=== PATIENT | female | born 1960 | race Caucasian/White ===

== ENCOUNTER → 2016-08-10 | Outpatient (CLI) | payer OTHER ==
[~2016-08-10] MED LIST: CALC500C70 PO; CHOL20007 PO; FLUT0.15 NAE; LISI-461 PO; OMEG10007 PO; OXYC7.5T65 PO; POTATAB2 PO; PROB1CHW9 PO; VSNOPS
== END | disposition home or self-care (01) ==
LOC: C.LABSPEC 15:31
PROVIDERS: ATTEND Urology
DX: R31.0 Gross hematuria (principal)

== ENCOUNTER → 2016-08-17 | Day surgery (SDC) | payer OTHER ==
[2016-08-13 11:42] VITALS: Ht 158.8 cm; Wt 117.3 kg
--- NOTE | 2016-08-13 12:28 | PAT Medication Instructions ---
Service Date Aug 13, 2016. Current Home Medication List Calcium/Vitamin D (Os-Bishop 500 Plus D), Unknown Dose PO DAILY Cholecalciferol (Vitamin D3), 1 TAB PO 3 PM Fish Oil (Heaters-3), 1,000 MG PO QAM Fluticasone Propionate (Nasal) (Flonase Allergy Relief), 1 SPRAY UDAY QAM Lisinopril (Zestril), 10 MG PO QAM Probiotic Product (Digestive Advantage Probi), 1 CAP PO QAM Tetrahydrozoline HCl (Visine), Unknown Dose Medication Instructions For Your Scheduled Surgery - Hold the following medications starting 08/14/16: Fish Oil (Heaters-3), 1,000 MG PO QAM - Hold the following medications the morning of surgery: Probiotic Product (Digestive Advantage Probi), 1 CAP PO QAM Lisinopril (Zestril), 10 MG PO QAM Calcium/Vitamin D (Os-Bishop 500 Plus D), Unknown Dose PO DAILY - Take the following medications the morning of surgery with a sip of water: Fluticasone Propionate (Nasal) (Flonase Allergy Relief), 1 SPRAY UDAY QAM Tetrahydrozoline HCl (Visine), Unknown Dose - Take the following medications as scheduled the night before surgery: Cholecalciferol (Vitamin D3), 1 TAB PO 3 PM Tetrahydrozoline HCl (Visine), Unknown Dose If you have any questions please call us at [phone] (Joelle Robertson PA-C) or [phone] or [phone]
--- NOTE | 2016-08-13 13:08 | DIAGNOSTIC IMAGING REPORT ---
CHEST 2 VIEWS ROUTINE CLINICAL HISTORY: Preoperative chest COMPARISON STUDY: No previous studies for comparison. FINDINGS: The cardiac and mediastinal contours are normal. There is no evidence of focal pulmonary consolidation. There is no evidence of failure. No pleural effusions are visualized.[ IMPRESSION: No active disease in the chest. Electronically signed by: Holden Jean-Baptiste M.D. 08/13/2016 1:06 PM Dictated Date/Time: 08/13/2016 1:05 PM
[2016-08-13 13:25] LABS: HEMATOCRIT 41.7 % (37-47); MEAN CELL VOLUME 86.3 fL (80-100); MEAN CORPUSCULAR HEMOGLOBIN 30.2 pg (25-34); MEAN PLATELET VOLUME 10.8 fL (7.4-10.4); PLATELET COUNT 218 K/uL (130-400); RED BLOOD COUNT 4.83 M/uL (4.2-5.4); WHITE BLOOD COUNT 9.67 K/uL (4.8-10.8)
[2016-08-13 13:28] LABS: URINE APPEARANCE CLEAR (CLEAR); URINE BILIRUBIN NEG (NEG); URINE COLOR YELLOW; URINE NITRITE NEG (NEG); URINE PH 6.5 (4.5-7.5); URINE SPECIFIC GRAVITY 1.013 (1.000-1.030); UROBILINOGEN NEG (NEG)
[2016-08-13 13:45] LABS: BUN/CREATININE RATIO 13.8 (10-20); CREATININE 0.61 mg/dl (0.60-1.20); POTASSIUM 3.8 mmol/L (3.5-5.1)
[2016-08-13 13:46] LABS: CALCIUM 9.4 mg/dl (8.5-10.1)
[2016-08-13 14:03] LABS: MANUAL MICROSCOPIC REQUIRED? NO; REVIEW REQ? NO
[~2016-08-17] VITALS: Ht 158.8 cm; Wt 117.3 kg
[~2016-08-17] MED LIST changes: +ATROPINE SULFATE 0.1 MG/ML 5ML SYR IV PRN; +CIPROFLOXACIN 400MG / D5W IV SCH; +DEXAMETHASONE SOD INJ 4 MG/ML VIAL IV PRN; +DEXAMETHASONE SOD INJ 4 MG/ML VIAL ONE; +EpHEDrine SULFATE INJ 50 MG/ML AMP IV PRN; +FENTANYL CITRATE INJ 50 MCG/1 ML 2 ML VIAL IV PRN; +FENTANYL CITRATE INJ 50 MCG/1 ML 2 ML VIAL ONE; +KETOROLAC TROMETHAMINE 30 MG/ML VIAL IV. PRN; +LABETALOL HCL IV 5 MG/ML 20ML IV PRN; +LACTATED RINGER'S 1000ML 1,000 ML IV SCH; +LIDOCAINE HCL 2% 2 ML VIAL (20MG/ML) ONE; +METOCLOPRAMIDE HCL INJ 5 MG/ML 2 ML VIAL IV PRN; +MIDAZOLAM HCL 1 MG/ML 2ML VIAL ONE; +MoRPHine SULFATE 10 MG/ML CARP/VIAL IV PRN; +ONDANSETRON INJ 2 MG/ML 2 ML VIAL IV PRN; +ONDANSETRON INJ 2 MG/ML 2 ML VIAL ONE; +OXYCODONE/ACETAMINOPHEN 5-325 TAB PO PRN; +PHENYLEPHRINE 100MCG/ML 5ML SYR IV PRN; +PROPOFOL IV EMULSION 10 MG/ML 20 ML VIAL IV ONE
--- NOTE | 2016-08-17 07:35 | History & Physical Bridge Note ---
H&P Re-Evaluation Bridge Note: I have examined the patient, reviewed the History & Physical and in the interval since the performance of the History & Physical I have noted the following changes of clinical significance: No changes noted
--- NOTE | 2016-08-17 07:59 | DIAGNOSTIC IMAGING REPORT ---
KUB HISTORY: N20.0 [id number] COMPARISON: Abdomen and pelvis CT 08/03/2016. FINDINGS: The bowel gas pattern is unremarkable. There are no dilated loops of small bowel to suggest an obstruction. There is a stable 4 mm stone within the left kidney. No right renal artery ureteral calculi. Calcifications in the deep pelvis likely represent phleboliths. No pneumoperitoneum or pneumatosis. IMPRESSION: Stable left-sided nephrolithiasis. Electronically signed by: Sherif Hidalgo M.D. 08/17/2016 7:57 AM Dictated Date/Time: 08/17/2016 7:56 AM
--- NOTE | 2016-08-17 09:11 | Discharge Instructions ---
Discharge Instructions Date of Service Aug 17, 2016. Admission Reason for Admission: Stones Discharge Discharge Diagnosis / Problem: L renal stone s/p ESWL Discharge Goals Goal(s): Decrease discomfort, Improve disease control, Therapeutic intervention Activity Recommendations Activity Limitations: per Instructions/Follow-up section Lifting Limitations: no more than 25 pounds, gradually increase as tolerated ( x 3 days) Exercise/Sports Limitations: rest today, gradually increase as tolerated May Resume Sexual Activity: when tolerated Shower/Bathe: no limitations Driving or Machine Use: resume 1 day after discharge . Instructions / Follow-Up Instructions / Follow-Up Strain urine as instructed KUB Xray before office visit as scheduled Discharge Diet Recommended Diet: Regular Diet (good fluid intake) Procedures Procedures Performed: L renal ESWL Pending Studies Studies pending at discharge: no Medical Emergencies . Who to Call and When: Medical Emergencies: If at any time you feel your situation is an emergency, please call 911 immediately. . Non-Emergent Contact Non-Emergency issues call your: Urologist Call Non-Emergent contact if: you have a fever, temperature is above 101, your pain is not controlled, your pain is worsening, your pain is unusual for you, your pain is concerning you, you have any medication questions . . "Provider Documentation" section prepared by Awais Kirby. . VTE Core Measure Inpt VTE Proph given/why not?: SCD's [place] Drug Monitoring Program Search Results: patient reviewed within database, no issues identified
--- NOTE | 2016-08-17 09:40 | [facility] Post Operative Brief Note ---
Immediate Operative Summary Operative Date Aug 17, 2016. Pre-Operative Diagnosis Left Renal Stone Post-Operative Diagnosis Same Procedure(s) Performed L renal ESWL Surgeon Dr. Kirby Senior Sql Developer Surgeon(s) None Estimated Blood Loss 0 mL Findings Good stone fragmentation on fluoro Specimens None Drains NA Anesthesia GALMA Complication(s) None Disposition Recovery Room / PACU
--- NOTE | 2016-08-17 10:09 | OPERATIVE REPORT ---
DATE OF OPERATION: 08/17/2016 PREOPERATIVE DIAGNOSIS: Left renal stone. POSTOPERATIVE DIAGNOSIS: Same. PROCEDURE: Left renal extracorporeal shockwave lithotripsy. SURGEON: Dr. Awais Kirby. RECREATION TEACHER: None. ANESTHESIA: General anesthesia with laryngeal mask. COMPLICATIONS: None. FINDINGS: Good stone fragmentation on fluoroscopy. DETAILS OF PROCEDURE: The patient was brought to the litho suite. He was correctly identified and the stone was visualized on his most recent x-rays. After the correct time out was performed the patient was positioned over the therapy head. An adequate level of anesthesia was administered. The extracorporeal shockwave lithotripsy treatment was then commenced. Please see the [facility] sheet for complete treatment summary. After completion of the procedure the patient was taken to the recovery room in stable condition. I attest to the content of the Intraoperative Record and any orders documented therein. Any exceptio ns are noted below.
[2016-08-17 10:23] VITALS: TEMP 36.7
--- NOTE | 2016-08-17 10:31 | Anesthesia Progress Nt - [facility] ---
Anesthesia Post Op Note Date & Time Aug 17, 2016 at 10:31 Vital Signs Pain Intensity: 0 Vital Signs Past 12 Hours Date Time Temp Pulse Resp B/P Pulse Ox O2 Delivery O2 Flow Rate FiO2 08/17/16 10:23 36.7 68 18 112/75 95 Room Air 08/17/16 10:10 128/82 08/17/16 10:07 36.8 72 20 128/82 96 Room Air 08/17/16 10:07 69 24 94 08/17/16 10:07 68 24 08/17/16 10:04 129/80 08/17/16 10:02 69 17 08/17/16 10:02 69 17 96 08/17/16 09:59 124/84 08/17/16 09:57 69 15 98 08/17/16 09:57 69 15 08/17/16 09:54 124/76 08/17/16 09:52 65 17 100 08/17/16 09:52 66 17 08/17/16 09:49 125/87 08/17/16 09:47 63 17 99 08/17/16 09:47 63 17 08/17/16 09:44 122/87 08/17/16 09:42 73 11 08/17/16 09:42 36.4 68 16 129/85 99 Diffusion Mask 6 08/17/16 09:42 76 11 129/85 99 08/17/16 07:05 37 75 16 123/85 96 Room Air Notes Mental Status: alert / awake / arousable, participated in evaluation Pt Amnestic to Procedure: Yes Nausea / Vomiting: adequately controlled Pain: adequately controlled Airway Patency, RR, SpO2: stable & adequate BP & HR: stable & adequate Hydration State: stable & adequate Anesthetic Complications: no major complications apparent
[2016-08-17 10:46] VITALS: BP 118/78; PULSE 67; O2SAT 97
== END | disposition home or self-care (01) ==
LOC: X.SURG 06:28
PROVIDERS: ATTEND Urology
DX: N20.0 Calculus of kidney (principal); R31.0 Gross hematuria; I10 Essential (primary) hypertension; Z80.1 Family history of malignant neoplasm of trachea, bronchus and lung; Z83.3 Family history of diabetes mellitus; Z80.6 Family history of leukemia; Z78.9 Other specified health status; Z79.899 Other long term (current) drug therapy

== ENCOUNTER → 2016-08-29 | Outpatient (CLI) | payer OTHER ==
[~2016-08-29] MED LIST changes: -ATROPINE SULFATE 0.1 MG/ML 5ML SYR IV PRN; -CIPROFLOXACIN 400MG / D5W IV SCH; -DEXAMETHASONE SOD INJ 4 MG/ML VIAL IV PRN; -DEXAMETHASONE SOD INJ 4 MG/ML VIAL ONE; -EpHEDrine SULFATE INJ 50 MG/ML AMP IV PRN; -FENTANYL CITRATE INJ 50 MCG/1 ML 2 ML VIAL IV PRN; -FENTANYL CITRATE INJ 50 MCG/1 ML 2 ML VIAL ONE; -KETOROLAC TROMETHAMINE 30 MG/ML VIAL IV. PRN; -LABETALOL HCL IV 5 MG/ML 20ML IV PRN; -LACTATED RINGER'S 1000ML 1,000 ML IV SCH; -LIDOCAINE HCL 2% 2 ML VIAL (20MG/ML) ONE; -METOCLOPRAMIDE HCL INJ 5 MG/ML 2 ML VIAL IV PRN; -MIDAZOLAM HCL 1 MG/ML 2ML VIAL ONE; -MoRPHine SULFATE 10 MG/ML CARP/VIAL IV PRN; -ONDANSETRON INJ 2 MG/ML 2 ML VIAL IV PRN; -ONDANSETRON INJ 2 MG/ML 2 ML VIAL ONE; -OXYCODONE/ACETAMINOPHEN 5-325 TAB PO PRN; -PHENYLEPHRINE 100MCG/ML 5ML SYR IV PRN; -PROPOFOL IV EMULSION 10 MG/ML 20 ML VIAL IV ONE
--- NOTE | 2016-08-29 15:29 | DIAGNOSTIC IMAGING REPORT ---
KUB CLINICAL HISTORY: NEPHROLITHIASIS COMPARISON STUDY: 08/17/2016 FINDINGS: There is no pathologic bowel dilatation. The renal shadows are partially obscured overlying bowel gas and fecal material. There is a stable 4 mm upper pole left renal calculus. Multiple pelvic basin calcifications remain similar. IMPRESSION: Stable 4 mm left renal calculus Electronically signed by: Holden Jean-Baptiste M.D. 08/29/2016 3:28 PM Dictated Date/Time: 08/29/2016 3:26 PM
== END | disposition home or self-care (01) ==
LOC: C.RAD 14:43
PROVIDERS: ATTEND Urology
DX: N20.0 Calculus of kidney (principal)

== ENCOUNTER → 2016-08-29 | Outpatient (CLI) | payer OTHER | END | disposition home or self-care (01) | LOC: C.LABSPEC 10:53 | PROVIDERS: ATTEND Urology | DX: N20.0 Calculus of kidney (principal) ==

== ENCOUNTER → 2017-01-01 | Outpatient (CLI) | payer OTHER ==
--- NOTE | 2017-01-01 14:59 | DIAGNOSTIC IMAGING REPORT ---
KUB HISTORY: N20.0 Nephrolithiasis COMPARISON: KUB 08/29/2016. Abdomen and pelvis CT 08/03/2016. FINDINGS: The bowel gas pattern is unremarkable. There are no dilated loops of small bowel to suggest an obstruction. Multiple calcifications within the deep pelvis are not significantly changed and therefore favor phleboliths. No definite ureteral calculi. Oval-shaped densities at the level of the rectum likely represent ingested medication. The renal shadows are partially obscured by overlying bowel. No definite renal calculi. No pneumoperitoneum or pneumatosis. IMPRESSION: The left renal stone seen on the prior studies is no longer identified. This could be obscured by the overlapping bowel or may have passed in the interval. No ureteral calculi. Electronically signed by: Sherif Hidalgo M.D. 01/01/2017 2:57 PM Dictated Date/Time: 01/01/2017 2:54 PM
== END | disposition home or self-care (01) ==
LOC: C.RAD 14:07
PROVIDERS: ATTEND Urology
DX: N20.0 Calculus of kidney (principal)

== ENCOUNTER → 2017-07-01 | Outpatient (CLI) | payer OTHER ==
[~2017-07-01] MED LIST changes: +CALC600C9 PO; -OXYC7.5T65 PO; +PROB1CAP PO
== END | disposition home or self-care (01) ==
LOC: C.LAB1850 14:59
PROVIDERS: ATTEND Obstetrics & Gynecology
DX: N83.209 Unspecified ovarian cyst, unspecified side (principal)

== ENCOUNTER → 2017-07-17 | Outpatient (CLI) | payer OTHER ==
[~2017-07-17] MED LIST changes: -CALC500C70 PO; -CHOL20007 PO; -POTATAB2 PO; -PROB1CHW9 PO
--- NOTE | 2017-07-17 11:58 | DIAGNOSTIC IMAGING REPORT ---
CT SCAN OF THE ABDOMEN AND PELVIS WITHOUT IV CONTRAST CLINICAL HISTORY: Nephrolithiasis. COMPARISON STUDY: KUB dated 01/01/2017. Abdominal CT dated 08/03/2016. TECHNIQUE: CT scan of the abdomen and pelvis is performed from the lung bases to the proximal femora. Images are reviewed in the axial, sagittal, and coronal planes. IV contrast was not administered for this examination. A dose lowering technique was utilized adhering to the principles of ALARA. CT DOSE: 1004.90 mGycm FINDINGS: Lung bases: The heart is normal in size and without pericardial effusion. Small fat-containing Bochdalek hernias are present at both lung bases. Linear atelectasis versus scarring is seen in the right middle lobe. The lung bases are otherwise clear. Liver: The unenhanced liver is enlarged, measuring 19.4 cm in length. The liver demonstrates diminished attenuation consistent with hepatic steatosis. There is no intrahepatic biliary ductal dilatation. Gallbladder: Unremarkable. Spleen: The spleen is enlarged, measuring 14.9 cm in length. Pancreas: The unenhanced pancreas is moderately atrophic and grossly unremarkable. Adrenal glands: A 2.8 cm right adrenal nodule meets CT criteria for a fat-containing adenoma. This is unchanged from previous. The left adrenal gland is normal in appearance. Kidneys: The unenhanced kidneys demonstrate cortical atrophy and are without hydronephrosis. There is a small right-sided extrarenal pelvis. There is a 4 mm nonobstructing calculus in the lower pole of the left kidney. No calculi are identified in the right kidney. There is no evidence of contour deforming renal mass lesion. Abdominal vasculature: The abdominal aorta is normal in course and caliber. Bowel: There is mild sigmoid diverticulosis without CT evidence of acute diverticulitis. No bowel obstruction is seen. The appendix is well-visualized and normal. Peritoneum: There is no intraperitoneal free air or abdominal ascites. There is a fat-containing umbilical hernia. Lymphadenopathy: None. Pelvic viscera: The bladder is normal as visualized. The uterus is surgically absent. There is an 7.3 x 8.1 x 6.1 cm water attenuation lesion in the right adnexa, likely related to the right ovary. This demonstrates a thin rim of soft tissue. Skeletal structures: The skeletal structures are osteopenic. There is mild to moderate lumbosacral spondylosis. Sclerotic change is seen in the sacroiliac joints and pubic symphysis. No lytic or blastic lesions are seen. IMPRESSION: 1. There is a 4 mm nonobstructing left renal calculus. 2. No right renal calculi are identified. 3. Hepatomegaly and hepatic steatosis. 4. Splenomegaly. 5. There is an 8.1 cm water attenuation cystic lesion in the right adnexa with a thin rim of soft tissue. This is likely related to right ovary, and similar in appearance to the 08/03/2016 examination. Ovarian neoplasm is not excluded. Follow-up with gynecology is recommended. 6. Additional findings as above. Electronically signed by: Bala Arellano M.D. 07/17/2017 11:56 AM Dictated Date/Time: 07/17/2017 11:45 AM
== END | disposition home or self-care (01) ==
LOC: C.CTS 11:24
PROVIDERS: ATTEND Urology
DX: N20.0 Calculus of kidney (principal)

== ENCOUNTER → 2017-08-05 | Day surgery (SDC) | payer OTHER ==
[2017-07-04 15:51] VITALS: BMI 41.0
[2017-07-29 10:20] LABS: BASO % 0.4 %; BASO ABS # 0.03 K/uL (0-0.2); EOS % 3.1 %; EOS ABS # 0.22 K/uL (0-0.5); HEMATOCRIT 41.9 % (37-47); HEMOGLOBIN 14.6 g/dL (12.0-16.0); IG# 0.02 K/uL (0.00-0.02); LYMPH % 38.7 %; LYMPH ABS # 2.75 K/uL (1.2-3.4); MEAN CELL VOLUME 86.6 fL (80-100); MEAN CORPUSCULAR HEMOGLOBIN 30.2 pg (25-34); MEAN CORPUSCULAR HGB CONC 34.8 g/dl (32-36); MONO % 6.8 %; MONO ABS # 0.48 K/uL (0.11-0.59); NEUT % 50.7 %; NEUT ABS # 3.61 K/uL (1.4-6.5); PLATELET COUNT 217 K/uL (130-400); RED CELL DISTRIBUTION WIDTH CV 12.2 % (11.5-14.5); RED CELL DISTRIBUTION WIDTH SD 38.9 fL (36.4-46.3); WHITE BLOOD COUNT 7.11 K/uL (4.8-10.8)
[2017-07-29 10:47] LABS: CALCIUM 9.4 mg/dl (8.5-10.1); CREATININE 0.68 mg/dl (0.60-1.20); POTASSIUM 3.8 mmol/L (3.5-5.1)
[~2017-08-05] VITALS: Ht 158.8 cm; Wt 105.5 kg
[~2017-08-05] MED LIST changes: +ACETAMINOPHEN 1000 MG/100 ML IV IV ONE; +ATROPINE SULFATE 0.1 MG/ML 5ML SYR IV PRN; +BUPIVACAINE 0.5 % 5 MG/1 ML MPF 30ML VIAL ONE; +CEFAZOLIN 3000MG IV PUSH 22.5 ML IV SCH; +DEXAMETHASONE SOD INJ 4 MG/ML VIAL ONE; +EpHEDrine SULFATE INJ 50 MG/ML AMP IV PRN; +FENTANYL CITRATE INJ 50 MCG/1 ML 2 ML VIAL IV PRN; +FENTANYL CITRATE INJ 50 MCG/1 ML 2 ML VIAL ONE; +GLYCOPYRROLATE INJ 0.2 MG/ML VIAL ONE; +HYDROmorphone INJ 1 MG/ML SYR IV PRN; +IBUPROFEN 600 MG TAB PO PRN; +KETOROLAC TROMETHAMINE 30 MG/ML VIAL IV. PRN; +KETOROLAC TROMETHAMINE 30 MG/ML VIAL ONE; +LACTATED RINGER'S 1000ML 1,000 ML IV SCH; +LIDOCAINE HCL 2% 2 ML VIAL (20MG/ML) ONE; +MIDAZOLAM HCL 1 MG/ML 2ML VIAL ONE; +MTR600X PO; +NEOSTIGMINE METHYLSULFATE 5 MG/5 ML SYR ONE; +ONDANSETRON INJ 2 MG/ML 2 ML VIAL IV PRN; +ONDANSETRON INJ 2 MG/ML 2 ML VIAL ONE; +OXYC-57 PO; +OXYCODONE/ACETAMINOPHEN 5-325 TAB PO PRN; +PROMETHAZINE HCL INJ 25 MG in SODIUM CHLORIDE 0.9% 50ML 50 ML IV PRN; +PROMETHAZINE HCL INJ 6.25 MG in SODIUM CHLORIDE 0.9% 50ML 50 ML IV PRN; +PROPOFOL IV EMULSION 10 MG/ML 20 ML VIAL IV ONE; +ROCURONIUM BROMIDE 10 MG/ML 5 ML VIAL IV ONE; +SODIUM CHLORIDE 0.9% 1000ML 1,000 ML IV SCH; +TISSEEL FIBRIN SEALANT 4ML TOP ONE
[2017-08-05 08:23] VITALS: BP 130/87; PULSE 74; TEMP 36.8; O2SAT 93; Ht 158.8 cm; Wt 105.5 kg
--- NOTE | 2017-08-05 11:51 | [facility] Post Operative Brief Note ---
Immediate Operative Summary Operative Date Aug 05, 2017. Pre-Operative Diagnosis Right Ovarian Cyst Post-Operative Diagnosis Right Ovarian Cyst and adhesions Procedure(s) Performed Robotic assisted laparoscopic right salpingo-oopherectomy and cystoscopy Surgeon Dr. Hodges White Lead Filterer Surgeon(s) None Estimated Blood Loss 10ml Findings Consistent with Post-Op Diagnosis Specimens A. Right Tube and Ovary Drains None Anesthesia Type General Complication(s) none Disposition Accompanied Pt To Recover: no Disposition: Recovery Room / PACU
--- NOTE | 2017-08-05 11:52 | Discharge Instructions ---
Discharge Instructions Date of Service Aug 05, 2017. Admission Reason for Admission: Left Ovarian Cyst Discharge Discharge Diagnosis / Problem: ovarian cyst Discharge Goals Goal(s): Routine recovery after surgery Activity Recommendations Activity Limitations: per Instructions/Follow-up section . Instructions / Follow-Up Instructions / Follow-Up ACTIVITY RECOMMENDATIONS: * Rest the first 2-3 days. You should be back to your normal activity levels by day 3. * No heavy lifting for 2 weeks. * No intercourse, tampons or douching for 1-2 weeks. * You may shower the next day. * Do not drive anytime that you are taking narcotic pain medicines. RETURN TO SCHOOL/WORK: * May return to school or work after 2-3 days. DIET: Nausea may occur in the immediate post-operative period. If so, take clear liquids such as tea, bouillon, apple juice until all nausea has subsided, then resume usual diet. MEDICATIONS: Resume previous medications unless instructed otherwise by your surgeon. Ibuprofen 200mg 2-3 tablets every 4-6 hours as needed -- OR -- Aleve 2 tablets every 8-12 hours as needed for post-operative discomfort Medications are over the counter. Tylenol may be used if above medications are contraindicated or not preferred. Medication should be taken with food or milk. Do not take on an empty stomach. SPECIAL CARE INSTRUCTIONS: * Check temperature twice daily for one week. report any elevation over 101 degrees. * You may experience some vagina spotting and/or bleeding. This is normal for 1 -2 weeks and should not be heavier than a normal period. If it is unusual in amount, call your physician. * Post-operative discomfort may consist of a sore throat, a "bloated" feeling and pain in the shoulders. these are normal symptoms, which usually only last for 2-3 days. * Remove band-aids tomorrow and shower. There is no need to replace band-aids unless there is drainage or discomfort. FOLLOW UP VISIT: Call your doctor's office for a post-operative 2 week visit if not already scheduled. Current Hospital Diet Patient's current hospital diet: Discharge Diet Recommended Diet: Regular Diet Procedures Procedures Performed: Robotic assisted laparoscopic right salpingo-oopherectomy and cystoscopy Pending Studies Studies pending at discharge: no Medical Emergencies . Who to Call and When: Medical Emergencies: If at any time you feel your situation is an emergency, please call 911 immediately. . Non-Emergent Contact Non-Emergency issues call your: Dancing Instructor . . "Provider Documentation" section prepared by Sohail Hodges. .
--- NOTE | 2017-08-05 13:13 | Anesthesiology Progress Note ---
Anesthesia Post Op Note Date & Time Aug 05, 2017 at 13:13 Vital Signs Pain Intensity: 0 Vital Signs Past 12 Hours Date Time Temp Pulse Resp B/P (MAP) Pulse Ox O2 Delivery O2 Flow Rate FiO2 08/05/17 13:10 54 12 107/73 97 Room Air 08/05/17 13:00 56 14 97/68 99 Room Air 08/05/17 12:50 59 16 89/55 95 Room Air 08/05/17 12:40 36.1 59 16 83/57 96 Room Air 08/05/17 12:30 59 16 95/54 96 Room Air 08/05/17 12:20 59 16 94/59 95 Oxymask 10 08/05/17 12:10 57 16 103/60 98 Oxymask 10 08/05/17 12:00 36.2 61 16 103/67 96 Oxymask 10 08/05/17 08:23 36.8 74 20 130/87 (101) 93 Room Air Notes Mental Status: alert / awake / arousable, participated in evaluation Pt Amnestic to Procedure: Yes Nausea / Vomiting: adequately controlled Pain: adequately controlled Airway Patency, RR, SpO2: stable & adequate BP & HR: stable & adequate Hydration State: stable & adequate Anesthetic Complications: no major complications apparent
[2017-08-05 13:20] VITALS: BP 113/68; PULSE 65; TEMP 36.6; O2SAT 92
--- NOTE | 2017-08-05 13:35 | OPERATIVE REPORT ---
DATE OF OPERATION: 08/05/2017 PREOPERATIVE DIAGNOSIS: Right ovarian cyst. POSTOPERATIVE DIAGNOSES: Right ovarian cyst and abdominal adhesions. PROCEDURE: Robotically assisted laparoscopic right salpingo-oophorectomy and cystoscopy. SURGEON: Sohail Hodges MD PRUNE WASHER: None. ESTIMATED BLOOD LOSS: 10 mL. FINDINGS: Consistent with postop diagnosis. SPECIMENS: Right tube and ovary. DRAINS: None. ANESTHETIC: General. COMPLICATIONS: None. DISPOSITION: Recovery room. DESCRIPTION OF PROCEDURE: Desi was given a general anesthetic, prepped and draped in dorsal lithotomy. She was given preoperative antibiotics and bowel prep had been performed the day before. Jay catheter placed in her bladder and a sponge stick placed in the vagina. Gloves changed and a supraumbilical incision made with scalpel using direct cutdown technique. We cut into the fascia, split the rectus muscles and entered the peritoneal cavity. Blunt-tipped Victor Hugo trocar then placed. Balloon inflated to allow port stabilization. CO2 gas used to insufflate the abdomen. FINDINGS: Upper abdomen normal. There were dense adhesions of the omentum and bowel on the left side of the abdomen all the way down to the pelvis. We started just below the umbilicus where the previous midline incision was. By passing these, I was able to visualize the cyst, which appeared benign in the pelvis. Because of the dense adhesions and the fact that they were causing an issue, we decided not to lyse these as risk, benefit analysis and certainly did not make sense. Two robotic ports were placed, one just left of the midline, but avoiding the adhesions and another in the right side and then a midline accessory port 8 mm placed. After Trendelenburg position robot was docked, arm #1 was monopolar sia, arm #2 was bipolar [place]. We did identify the ovary on the right side. There were adhesions to the bladder flap, the pelvic sidewall and flimsy adhesions to the epiploicae of the bowel. I was able to largely sharply dissect the adhesions away using minimal electrosurgery. Once the bowel was off the ovary, I was able to identify the right ureter. This was peristalsing as well away from the area of dissection. I was then able to coagulate the ovarian artery and vein on the right side, staying well away from the ureter and then cut this. We then skeletonized the right ovary and tube away from its right lateral wall attachments and as well, again to the bladder flap. There was some spillage, but minimal and it was clear fluid. Cyst appeared to be a simple cyst with a septation. Smooth walled, no excrescences. Then undocking the robot, we used a 5 mm scope and a 10 mm bag through the umbilical port. The specimen was then placed into the bag and brought up to the umbilical incision. It was drained at that point and then bag was removed. There is no leakage of further cyst fluid at this stage in the peritoneal cavity. After removing this, we generously irrigated and suctioned the area, hemostasis was excellent. We did apply 4 mL of Tisseel to the area. Hemostasis was excellent including passing a low carbon dioxide test. Ports removed, gas allowed to escape. Incisions injected with 0.5% Marcaine. Fascia closed with several [id number], 0 Vicryl stitches into the umbilical incision and then subcutaneous fat closed with 0 Vicryl, 4-0 subcuticular Monocryl closures and Dermabond applied. Jay catheter was removed. We did perform cystoscopy. There was no sign of bladder injury and both ureters on right and left side had good strong jets of urine from each side. Cystoscope removed and another Jay catheter was used to drain the bladder. Patient went to recovery room without a Jay. At the end of procedure, sponge and instrument counts were correct. I attest to the content of the Intraoperative Record and any orders documented therein. Any exception s are noted below.
[2017-08-05 13:50] VITALS: BP 102/66; PULSE 83; TEMP 36.6; O2SAT 96
== END ==
LOC: C.ACU 08:03
PROVIDERS: ATTEND Obstetrics & Gynecology
DX: D27.0 Benign neoplasm of right ovary (principal); K66.0 Peritoneal adhesions (postprocedural) (postinfection); I10 Essential (primary) hypertension; J45.909 Unspecified asthma, uncomplicated; Z88.2 Allergy status to sulfonamides; E66.9 Obesity, unspecified; Z80.1 Family history of malignant neoplasm of trachea, bronchus and lung; Z83.3 Family history of diabetes mellitus; Z80.6 Family history of leukemia
CPT/HCPCS: 58661; S2900